=== PATIENT | male | born 1985 | race Caucasian/White ===

== ENCOUNTER 2017-07-22 15:54 | Emergency (ER) | payer OTHER ==
[~2017-07-22] VITALS: Ht 180.3 cm; Wt 65.1 kg
[2017-07-22] MEDS ORDERED: PERCOCET 5/31 TABLET PO (18:40)
[2017-07-22 19:33] LABS: CHLORIDE 109 mEq/L (99-109); POTASSIUM 3.7 mEq/L (3.7-5.4); SODIUM 143 mEq/L (136-147)
[2017-07-22 19:34] LABS: GLUCOSE 105 mg/dL (70-99)
[2017-07-22 19:38] LABS: CREATININE 0.9 mg/dL (0.6-1.3); GFR ESTIMATE (CALCULATED) > 59 mL/min/ (58.99-99999)
[2017-07-22 19:39] LABS: UREA NITROGEN (BUN) 10 mg/dL (9-23)
[2017-07-22 21:04] LABS: PTT 30.4 SEC (25-37)
[2017-07-22 21:29] LABS: BASOPHIL (%) 0.3 % (0-1); EOSINOPHIL (%) 0.1 % (0-5); HEMATOCRIT 44.1 % (38.0-50.0); HEMOGLOBIN 15.9 G/DL (12.5-16.6); IMMATURE GRANULOCYTE (%) 0.8 % (0.0-0.7); LYMPHOCYTE (%) 6.4 % (15-42); MCH 30.6 PG (29.0-34.0); MCHC 36.1 G/DL (30.0-36.0); MONOCYTE (%) 6.4 % (3-12); NEUTROPHIL COUNT 13.3 K/uL (1.8-6.4); PLATELET COUNT 207 K/uL (156-360); RBC DIS.WIDTH-CV 11.9 % (11.8-14.6); RBC DIS.WIDTH-SD 36.8 % (39-53); RED BLOOD COUNT 5.19 M/uL (4.00-5.50); WHITE BLOOD COUNT 15.4 K/uL (4.1-10.2)
[2017-07-22 21:48] VITALS: BP 127/70
== END 2017-07-22 21:58 | disposition home or self-care (01) ==
LOC: EME 15:54
PROVIDERS: Emergency Medicine
DX: S32.030A Wedge compression fracture of third lumbar vertebra, initial encounter for closed fracture (principal); V47.0XXA Car driver injured in collision with fixed or stationary object in nontraffic accident, initial encounter; Y92.410 Unspecified street and highway as the place of occurrence of the external cause; S80.211A Abrasion, right knee, initial encounter; R51 Headache
CPT/HCPCS: 70450; 71046; 71120; 71260; 72040; 72070; 72100; 72125; 72129; 72132; 74177; 80048; 85025; 85610; 85730; 99281; 99285; J2405; J3010